=== PATIENT | female | born 1985 | race Caucasian/White ===

== ENCOUNTER → 2020-02-08 | Emergency (ER) | payer OTHER ==
[~2020-02-08] VITALS: Ht 180.3 cm; Wt 74.8 kg
[~2020-02-08] MED LIST: CLONAZEPAM0.5 MG PO; NASAL MIST126 ML
== END | disposition designated cancer center or children's hospital (05) ==
LOC: ER 22:44
DX: T42.4X2A Poisoning by benzodiazepines, intentional self-harm, initial encounter (principal); R10.13 Epigastric pain; M54.5 Low back pain; Z20.828 Contact with and (suspected) exposure to other viral communicable diseases; Y92.098 Other place in other non-institutional residence as the place of occurrence of the external cause

== ENCOUNTER 2020-02-13 06:37 | Emergency (ER) | payer OTHER ==
[~2020-02-13] VITALS: Ht 165.1 cm; Wt 72.6 kg
== END 2020-02-13 13:34 | disposition home or self-care (01) ==
LOC: ER 06:37
DX: K29.60 Other gastritis without bleeding (principal)

== ENCOUNTER 2021-10-19 04:28 | Emergency (ER) | payer OTHER ==
[~2021-10-19] VITALS: Ht 165.1 cm; Wt 68.0 kg
== END 2021-10-19 15:59 | disposition home or self-care (01) ==
LOC: ER 04:28
DX: K52.9 Noninfective gastroenteritis and colitis, unspecified (principal); A05.9 Bacterial foodborne intoxication, unspecified; Q60.0 Renal agenesis, unilateral

== ENCOUNTER 2022-07-11 12:40 | Outpatient (CLI) | payer OTHER | END 2022-07-11 12:43 | disposition home or self-care (01) | LOC: RAD 12:40 | PROVIDERS: ATTEND Obstetrics & Gynecology Obstetrics | DX: M99.01 Segmental and somatic dysfunction of cervical region (principal); M99.02 Segmental and somatic dysfunction of thoracic region; M99.03 Segmental and somatic dysfunction of lumbar region; M99.04 Segmental and somatic dysfunction of sacral region; M99.05 Segmental and somatic dysfunction of pelvic region ==

== ENCOUNTER 2023-07-12 11:53 | Emergency (ER) | payer OTHER ==
[~2023-07-12] VITALS: Ht 165.1 cm; Wt 57.2 kg
== END 2023-07-12 13:57 | disposition home or self-care (01) ==
LOC: ER 11:53
DX: L72.3 Sebaceous cyst (principal)

== ENCOUNTER 2024-07-01 15:37 | Emergency (ER) | payer OTHER ==
[~2024-07-01] VITALS: Ht 165.1 cm; Wt 63.5 kg
[2024-07-01] MEDS ORDERED: NORVASC2.5 MG PO (16:27)
[2024-07-01] MEDS ORDERED: FUROsemide 40 MG/4 ML VIAL IV ONE (17:00)
[2024-07-01] MEDS ORDERED: ENALAPRILAT DIHYDRATE 1.25 MG/ML VIAL IV ONE ×2 (17:00→17:19)
[2024-07-01] MEDS ORDERED: FUROsemide 40 MG/4 ML VIAL ONE (17:19)
[2024-07-01 17:27] LABS: HEMATOCRIT 38.8 % (36.0-45.00); HEMOGLOBIN 13.5 g/dL (12.0-15.00); MEAN CELL VOLUME 78.8 fL (80.00-100.00); MEAN CORPUSCULAR HEMOGLOBIN 27.5 pg (27.00-32.0); MEAN CORPUSCULAR HGB CONC 34.9 g/dl (32.0-36.0); PLATELET COUNT 371 K/uL (150-450); RED BLOOD COUNT 4.92 M/uL (4.00-6.00); RED CELL DISTRIBUTION WIDTH 15.7 % (11.5-14.5)
[2024-07-01 17:44] LABS: INR 0.94; PARTIAL THROMBOPLASTIN TIME 24.6 SECONDS (22.0-34.0); PROTHROMBIN TIME 10.3 SECONDS (9.0-11.5)
[2024-07-01 17:50] LABS: BILIRUBIN TOTAL 0.37 mg/dL (0.3-1.2); CALCIUM 9.2 mg/dL (8.5-10.1); CREATININE SERUM 0.86 mg/dL (0.55-1.02); GFR 74.25; GLOBULINA 4.1 G/DL (2.4-3.5); POTASSIUM 4.18 mEq/L (3.5-5.1); TOTAL PROTEIN 8.1 gm/dL (6.4-8.2)
[2024-07-01 17:53] LABS: proBNP 16 pg/mL (0-51.9)
[2024-07-01 18:04] LABS: TROPONIN I hs < 3.0 PG/ML (42.2-82.3)
[2024-07-01] MEDS ORDERED: hydrALAZINE HCL 20 MG VIAL IV ONE (18:45)
[2024-07-01] MEDS ORDERED: hydrALAZINE HCL 20 MG VIAL ONE (18:53)
[2024-07-01] MEDS ORDERED: KETOROLAC TROMETHAMINE 30 MG VIAL ONE (19:55)
[2024-07-01] MEDS ORDERED: KETOROLAC TROMETHAMINE 30 MG VIAL IV ONE (20:00)
== END 2024-07-01 20:14 | disposition home or self-care (01) ==
LOC: ER 15:39
PROVIDERS: General Practice
DX: I10 Essential (primary) hypertension (principal); R07.89 Other chest pain